=== PATIENT | female | born 1950 | race Hispanic/Latino ===

== ENCOUNTER 2021-01-18 10:36 | Outpatient (CLI) | payer MEDICARE, BC | END 2021-01-18 10:37 | disposition home or self-care (01) | LOC: CSHWCC 10:36 | PROVIDERS: ATTEND Nurse Practitioner Family | DX: I87.311 Chronic venous hypertension (idiopathic) with ulcer of right lower extremity (principal); B35.1 Tinea unguium; E03.9 Hypothyroidism, unspecified; E78.2 Mixed hyperlipidemia; F32.9 Major depressive disorder, single episode, unspecified; G47.33 Obstructive sleep apnea (adult) (pediatric); I10 Essential (primary) hypertension; I25.10 Atherosclerotic heart disease of native coronary artery without angina pectoris; I69.951 Hemiplegia and hemiparesis following unspecified cerebrovascular disease affecting right dominant side; I87.2 Venous insufficiency (chronic) (peripheral); L97.512 Non-pressure chronic ulcer of other part of right foot with fat layer exposed; L03.031 Cellulitis of right toe; M24.541 Contracture, right hand; M24.561 Contracture, right knee; N17.9 Acute kidney failure, unspecified; R32 Unspecified urinary incontinence | CPT/HCPCS: 29581; 87070; 87077; 87186; 87205; 97139; G0463; 99213 ==

== ENCOUNTER 2021-04-25 09:29 | Outpatient (CLI) | payer MEDICARE, BC | END 2021-04-25 09:30 | disposition home or self-care (01) | LOC: CSHWCC 09:29 | PROVIDERS: ATTEND Nurse Practitioner Family | DX: I87.331 Chronic venous hypertension (idiopathic) with ulcer and inflammation of right lower extremity (principal); L97.515 Non-pressure chronic ulcer of other part of right foot with muscle involvement without evidence of necrosis; L97.811 Non-pressure chronic ulcer of other part of right lower leg limited to breakdown of skin; L97.812 Non-pressure chronic ulcer of other part of right lower leg with fat layer exposed; R60.0 Localized edema; B35.1 Tinea unguium; E03.9 Hypothyroidism, unspecified; E78.2 Mixed hyperlipidemia; F32.9 Major depressive disorder, single episode, unspecified; G47.33 Obstructive sleep apnea (adult) (pediatric); I25.10 Atherosclerotic heart disease of native coronary artery without angina pectoris; I69.951 Hemiplegia and hemiparesis following unspecified cerebrovascular disease affecting right dominant side; I87.2 Venous insufficiency (chronic) (peripheral); L03.031 Cellulitis of right toe; M24.541 Contracture, right hand; M24.561 Contracture, right knee; N17.9 Acute kidney failure, unspecified; R32 Unspecified urinary incontinence; Z74.01 Bed confinement status | CPT/HCPCS: 29581; 87070; 87077; 87186; 87205; 99213; G0463 ==

== ENCOUNTER 2021-07-07 09:43 | Outpatient (CLI) | payer BC | END 2021-07-07 09:44 | disposition home or self-care (01) | LOC: CSHWCC 09:43 | PROVIDERS: ATTEND Nurse Practitioner Family | DX: I87.331 Chronic venous hypertension (idiopathic) with ulcer and inflammation of right lower extremity (principal); B35.1 Tinea unguium; E03.9 Hypothyroidism, unspecified; E78.2 Mixed hyperlipidemia; F32.9 Major depressive disorder, single episode, unspecified; G47.33 Obstructive sleep apnea (adult) (pediatric); I10 Essential (primary) hypertension; I25.10 Atherosclerotic heart disease of native coronary artery without angina pectoris; I69.951 Hemiplegia and hemiparesis following unspecified cerebrovascular disease affecting right dominant side; I87.2 Venous insufficiency (chronic) (peripheral); L97.515 Non-pressure chronic ulcer of other part of right foot with muscle involvement without evidence of necrosis; L03.031 Cellulitis of right toe; M24.541 Contracture, right hand; M24.561 Contracture, right knee; N17.9 Acute kidney failure, unspecified ==

== ENCOUNTER 2021-07-24 08:38 | Outpatient (CLI) | payer BC | END 2021-07-24 08:39 | disposition home or self-care (01) | LOC: CSHWCC 08:38 | PROVIDERS: ATTEND Nurse Practitioner Family | DX: I87.331 Chronic venous hypertension (idiopathic) with ulcer and inflammation of right lower extremity (principal); I87.2 Venous insufficiency (chronic) (peripheral); L97.515 Non-pressure chronic ulcer of other part of right foot with muscle involvement without evidence of necrosis; B35.1 Tinea unguium; E03.9 Hypothyroidism, unspecified; E78.2 Mixed hyperlipidemia; G47.33 Obstructive sleep apnea (adult) (pediatric); I25.10 Atherosclerotic heart disease of native coronary artery without angina pectoris; I69.951 Hemiplegia and hemiparesis following unspecified cerebrovascular disease affecting right dominant side; L03.031 Cellulitis of right toe; M24.561 Contracture, right knee; M24.541 Contracture, right hand; N17.9 Acute kidney failure, unspecified; R32 Unspecified urinary incontinence; R60.0 Localized edema; F32.9 Major depressive disorder, single episode, unspecified; Z74.01 Bed confinement status | CPT/HCPCS: 99213; G0463 ==

== ENCOUNTER 2021-08-14 10:42 | Outpatient (CLI) | payer BC | END 2021-08-14 10:43 | disposition home or self-care (01) | LOC: CSHWCC 10:42 | PROVIDERS: ATTEND Nurse Practitioner Family | DX: I87.331 Chronic venous hypertension (idiopathic) with ulcer and inflammation of right lower extremity (principal); L97.515 Non-pressure chronic ulcer of other part of right foot with muscle involvement without evidence of necrosis; R60.0 Localized edema; L03.031 Cellulitis of right toe; B35.1 Tinea unguium; E03.9 Hypothyroidism, unspecified; E78.2 Mixed hyperlipidemia; F32.9 Major depressive disorder, single episode, unspecified; G47.33 Obstructive sleep apnea (adult) (pediatric); I25.10 Atherosclerotic heart disease of native coronary artery without angina pectoris; I69.951 Hemiplegia and hemiparesis following unspecified cerebrovascular disease affecting right dominant side; I87.2 Venous insufficiency (chronic) (peripheral); M24.541 Contracture, right hand; M24.561 Contracture, right knee; N17.9 Acute kidney failure, unspecified; R32 Unspecified urinary incontinence; Z74.01 Bed confinement status | CPT/HCPCS: 99213; G0463 ==

== ENCOUNTER 2021-08-14 11:49 | Outpatient (CLI) | payer BC | END 2021-08-14 11:50 | disposition home or self-care (01) | LOC: CSHRAD 11:49 | PROVIDERS: ATTEND Nurse Practitioner Family | DX: I87.311 Chronic venous hypertension (idiopathic) with ulcer of right lower extremity (principal); L97.512 Non-pressure chronic ulcer of other part of right foot with fat layer exposed ==

== ENCOUNTER 2021-09-05 11:33 | Outpatient (CLI) | payer MEDICARE, BC | END 2021-09-05 11:34 | disposition home or self-care (01) | LOC: CSHWCC 11:33 | PROVIDERS: ATTEND Nurse Practitioner Family | DX: I87.331 Chronic venous hypertension (idiopathic) with ulcer and inflammation of right lower extremity (principal); I87.2 Venous insufficiency (chronic) (peripheral); L97.515 Non-pressure chronic ulcer of other part of right foot with muscle involvement without evidence of necrosis; I69.951 Hemiplegia and hemiparesis following unspecified cerebrovascular disease affecting right dominant side; B35.1 Tinea unguium; E03.9 Hypothyroidism, unspecified; E78.2 Mixed hyperlipidemia; G47.33 Obstructive sleep apnea (adult) (pediatric); F32.9 Major depressive disorder, single episode, unspecified; I25.10 Atherosclerotic heart disease of native coronary artery without angina pectoris; L03.031 Cellulitis of right toe; M24.541 Contracture, right hand; M24.561 Contracture, right knee; N17.9 Acute kidney failure, unspecified; R32 Unspecified urinary incontinence; R60.0 Localized edema; Z74.01 Bed confinement status | CPT/HCPCS: 87070; 87186; 87205 ==

== ENCOUNTER 2021-09-11 11:55 | Outpatient (CLI) | payer MEDICARE, BC | END 2021-09-11 11:56 | disposition home or self-care (01) | LOC: CSHWCC 11:55 | PROVIDERS: ATTEND Nurse Practitioner Family | DX: I87.331 Chronic venous hypertension (idiopathic) with ulcer and inflammation of right lower extremity (principal); B35.1 Tinea unguium; E03.9 Hypothyroidism, unspecified; E78.2 Mixed hyperlipidemia; F32.9 Major depressive disorder, single episode, unspecified; G47.33 Obstructive sleep apnea (adult) (pediatric); I10 Essential (primary) hypertension; I25.10 Atherosclerotic heart disease of native coronary artery without angina pectoris; I69.951 Hemiplegia and hemiparesis following unspecified cerebrovascular disease affecting right dominant side; I87.2 Venous insufficiency (chronic) (peripheral); L97.515 Non-pressure chronic ulcer of other part of right foot with muscle involvement without evidence of necrosis; L03.031 Cellulitis of right toe; M24.541 Contracture, right hand; M24.561 Contracture, right knee; N17.9 Acute kidney failure, unspecified; R32 Unspecified urinary incontinence; R60.0 Localized edema ==

== ENCOUNTER 2021-10-09 10:36 | Outpatient (CLI) | payer MEDICARE, BC | END 2021-10-09 10:37 | disposition home or self-care (01) | LOC: CSHWCC 10:36 | PROVIDERS: ATTEND Nurse Practitioner Family | DX: I87.331 Chronic venous hypertension (idiopathic) with ulcer and inflammation of right lower extremity (principal); L97.515 Non-pressure chronic ulcer of other part of right foot with muscle involvement without evidence of necrosis; R60.0 Localized edema | CPT/HCPCS: 97139; G0463; 99213 ==

== ENCOUNTER 2021-10-30 10:04 | Outpatient (CLI) | payer MEDICARE, BC | END 2021-10-30 10:05 | disposition home or self-care (01) | LOC: CSHWCC 10:04 | PROVIDERS: ATTEND Nurse Practitioner Family | DX: I87.331 Chronic venous hypertension (idiopathic) with ulcer and inflammation of right lower extremity (principal); L97.515 Non-pressure chronic ulcer of other part of right foot with muscle involvement without evidence of necrosis; R60.0 Localized edema | CPT/HCPCS: 97139; G0463; 99213 ==

== ENCOUNTER 2021-12-06 08:43 | Outpatient (CLI) | payer MEDICARE, BC | END 2021-12-06 08:44 | disposition home or self-care (01) | LOC: CSHWCC 08:43 | PROVIDERS: ATTEND Nurse Practitioner Family | DX: I87.331 Chronic venous hypertension (idiopathic) with ulcer and inflammation of right lower extremity (principal); L97.515 Non-pressure chronic ulcer of other part of right foot with muscle involvement without evidence of necrosis; R60.0 Localized edema | CPT/HCPCS: 99213; G0463 ==

== ENCOUNTER 2021-12-26 13:12 | Outpatient (CLI) | payer MEDICARE, BC | END 2021-12-26 13:13 | disposition home or self-care (01) | LOC: CSHWCC 13:12 | PROVIDERS: ATTEND Nurse Practitioner Family | DX: I87.311 Chronic venous hypertension (idiopathic) with ulcer of right lower extremity (principal); I87.2 Venous insufficiency (chronic) (peripheral); L97.512 Non-pressure chronic ulcer of other part of right foot with fat layer exposed; L03.031 Cellulitis of right toe; R60.0 Localized edema; N17.9 Acute kidney failure, unspecified; I25.10 Atherosclerotic heart disease of native coronary artery without angina pectoris; B35.1 Tinea unguium; E03.9 Hypothyroidism, unspecified; E78.2 Mixed hyperlipidemia; F32.9 Major depressive disorder, single episode, unspecified; G47.33 Obstructive sleep apnea (adult) (pediatric); M24.541 Contracture, right hand; M24.561 Contracture, right knee; R32 Unspecified urinary incontinence; Z74.01 Bed confinement status | CPT/HCPCS: 11042 ==

== ENCOUNTER 2022-01-02 14:32 | Outpatient (CLI) | payer MEDICARE, BC | END 2022-01-02 14:33 | disposition home or self-care (01) | LOC: CSHWCC 14:32 | PROVIDERS: ATTEND Nurse Practitioner Family | DX: I87.331 Chronic venous hypertension (idiopathic) with ulcer and inflammation of right lower extremity (principal); L97.515 Non-pressure chronic ulcer of other part of right foot with muscle involvement without evidence of necrosis; R60.0 Localized edema | CPT/HCPCS: 97139; G0463; 99213 ==

== ENCOUNTER 2022-01-09 13:58 | Outpatient (CLI) | payer MEDICARE, BC | END 2022-01-09 13:59 | disposition home or self-care (01) | LOC: CSHWCC 13:58 | PROVIDERS: ATTEND Nurse Practitioner Family | DX: I87.331 Chronic venous hypertension (idiopathic) with ulcer and inflammation of right lower extremity (principal); L97.515 Non-pressure chronic ulcer of other part of right foot with muscle involvement without evidence of necrosis; R60.0 Localized edema | CPT/HCPCS: 99213; G0463 ==

== ENCOUNTER 2022-01-16 11:08 | Outpatient (CLI) | payer MEDICARE, BC | END 2022-01-16 11:09 | disposition home or self-care (01) | LOC: CSHWCC 11:08 | PROVIDERS: ATTEND Nurse Practitioner Family | DX: I87.331 Chronic venous hypertension (idiopathic) with ulcer and inflammation of right lower extremity (principal); L97.515 Non-pressure chronic ulcer of other part of right foot with muscle involvement without evidence of necrosis; R60.0 Localized edema | CPT/HCPCS: 99213; G0463 ==

== ENCOUNTER 2022-01-23 12:09 | Outpatient (CLI) | payer MEDICARE, BC | END 2022-01-23 12:10 | disposition home or self-care (01) | LOC: CSHWCC 12:09 | PROVIDERS: ATTEND Nurse Practitioner Family | DX: I87.331 Chronic venous hypertension (idiopathic) with ulcer and inflammation of right lower extremity (principal); L97.515 Non-pressure chronic ulcer of other part of right foot with muscle involvement without evidence of necrosis | CPT/HCPCS: 97139; G0463; 99213 ==

== ENCOUNTER 2022-02-05 11:08 | Outpatient (CLI) | payer MEDICARE, BC | END 2022-02-05 11:09 | disposition home or self-care (01) | LOC: CSHWCC 11:08 | PROVIDERS: ATTEND Nurse Practitioner Family | DX: I87.331 Chronic venous hypertension (idiopathic) with ulcer and inflammation of right lower extremity (principal); L97.515 Non-pressure chronic ulcer of other part of right foot with muscle involvement without evidence of necrosis; R60.0 Localized edema | CPT/HCPCS: 97139; G0463; 99213 ==

== ENCOUNTER 2022-02-19 10:06 | Outpatient (CLI) | payer MEDICARE, BC | END 2022-02-19 10:07 | disposition home or self-care (01) | LOC: CSHWCC 10:06 | PROVIDERS: ATTEND Nurse Practitioner Family | DX: R60.0 Localized edema (principal) | CPT/HCPCS: 97139; G0463; 99213 ==

== ENCOUNTER 2022-03-12 09:54 | Outpatient (CLI) | payer MEDICARE, BC | END 2022-03-12 09:55 | disposition home or self-care (01) | LOC: CSHWCC 09:54 | PROVIDERS: ATTEND Nurse Practitioner Family | DX: R60.0 Localized edema (principal) ==